=== PATIENT | female | born 1950 | race Caucasian/White ===

== ENCOUNTER 2018-09-16 12:31 | Day surgery (SDC) | payer OTHER ==
[~2018-09-16] VITALS: Ht 157.5 cm; Wt 72.4 kg
[2018-09-16 13:56] VITALS: Ht 157.5 cm; Wt 72.4 kg
[2018-09-16] MEDS ORDERED: METO25TA4 PO (14:03)
[2018-09-16] MEDS ORDERED: ESCI20TA38 PO (14:03)
[2018-09-16] MEDS ORDERED: LOSA1TAB22 PO (14:03)
[2018-09-16] MEDS ORDERED: SITA100T11 PO (14:03)
[2018-09-16] MEDS ORDERED: PANT40TA4 PO (14:03)
[2018-09-16] MEDS ORDERED: ATOR40TA68 PO (14:03)
[2018-09-16 14:21] VITALS: BP 142/71; PULSE 67; RESP 18
[2018-09-16] MEDS ORDERED: MIDAZOLAM 1 MG/ML 2 ML INJ ONE ×2 (15:37)
[2018-09-16] MEDS ORDERED: FENTAnyl 50 MCG/ML VIAL ONE (15:37)
== END 2018-09-16 16:27 | disposition home or self-care (01) ==
LOC: GIL 12:31
PROVIDERS: ATTEND Internal Medicine
DX: K44.9 Diaphragmatic hernia without obstruction or gangrene (principal); K20.8 Other esophagitis; K31.7 Polyp of stomach and duodenum; I10 Essential (primary) hypertension; E11.9 Type 2 diabetes mellitus without complications; J45.909 Unspecified asthma, uncomplicated
CPT/HCPCS: 43239; 82962; 88305; 88312; J2250; J3010